=== PATIENT | female | born 1945 | race Caucasian/White ===

== ENCOUNTER 2017-07-24 09:28 | Day surgery (SDC) | payer MEDICARE, MEDICAID ==
[~2017-07-24] VITALS: Ht 182.9 cm; Wt 73.9 kg
[2017-07-24] MEDS ORDERED: COREG6.25 MG PO (09:46)
[2017-07-24] MEDS ORDERED: DIGOXIN0.125 MG PO (09:46)
[2017-07-24] MEDS ORDERED: ENALAPRIL5 MG PO (09:46)
[2017-07-24] MEDS ORDERED: FAMOTIDINE20 M1 PO (09:47)
[2017-07-24] MEDS ORDERED: ALENDRONATE10 MG PO (09:47)
[2017-07-24] MEDS ORDERED: FUROSEMIDE20 MG PO (09:48)
[2017-07-24] MEDS ORDERED: LOVENOX 8080 MG/0.8 SC (09:48)
[2017-07-24] MEDS ORDERED: KLOR-CON M2020 MEQ PO (09:48)
[2017-07-24] MEDS ORDERED: TRAZODONE50 MG PO (09:49)
[2017-07-24] MEDS ORDERED: VENLAFAXINE HCL75 M1 PO (09:49)
[2017-07-24] MEDS ORDERED: OXYCODONE HCL5 MG PO (09:49)
[2017-07-24] MEDS ORDERED: WELLBUTRIN SR150 MG PO (09:50)
[2017-07-24 13:26] VITALS: BP 122/42
== END 2017-07-24 13:45 | disposition home or self-care (01) ==
LOC: ENDO 09:28 → ORM 11:15 → ENDO 13:45
PROVIDERS: ATTEND Internal Medicine Gastroenterology
PROC: 0DBN8ZX Excision of Sigmoid Colon, Via Natural or Artificial Opening Endoscopic, Diagnostic (ICD-10-PCS; principal; 2017-07-24)
DX: K92.1 Melena (principal); K63.3 Ulcer of intestine; K64.4 Residual hemorrhoidal skin tags; K64.8 Other hemorrhoids; R10.31 Right lower quadrant pain; R10.32 Left lower quadrant pain; K59.00 Constipation, unspecified; R63.4 Abnormal weight loss; R63.0 Anorexia; R11.0 Nausea; K21.9 Gastro-esophageal reflux disease without esophagitis; I10 Essential (primary) hypertension; I48.91 Unspecified atrial fibrillation; F41.9 Anxiety disorder, unspecified; F32.9 Major depressive disorder, single episode, unspecified; Z90.49 Acquired absence of other specified parts of digestive tract; Z86.010 Personal history of colon polyps